=== PATIENT | female | born 1985 | race African-American/Black ===

== ENCOUNTER 2021-11-25 11:32 | Emergency (ER) | payer OTHER ==
--- NOTE | 2021-11-25 12:05 | ED Physician Documentation ---
History of Present Illness - Stated complaint Stated Complaint: SOA/CHEST PX/LT ARM NUMB - Chief complaint Chief Complaint: Cardiac - Additonal information Additional information: 36-year-old female presents emergency department for evaluation of left-sided chest pain and pressure with radiation to the left arm. She is also endorsing some shortness of breath. Symptoms seem to worsen with exertion. She reports a sharp pain when she takes a deep breath. No history of similar in the past. Does not carry history of hypertension or diabetes. No tobacco or nicotine products. She takes no routinely prescribed medications with the exception of occasional Ativan and Protonix. She stopped taking her Sprintec OCP about 3 weeks ago due to nausea. no unilateral leg swelling, recent travel, surgery, immobilization, hx of dvt/cancer Review of Systems Constitutional: reports: Reviewed and negative Eyes: reports: Reviewed and negative Ears: reports: Reviewed and negative Cardiac: reports: Chest pain / pressure, Palpitations Respiratory: denies: Dyspnea, Cough GI: reports: Reviewed and negative : reports: Reviewed and negative Skin: denies: Rash, Lesions Musculoskeletal: reports: Reviewed and negative PD PAST MEDICAL HISTORY - Present Medications Home Medications: Ambulatory Orders Medication Instructions Recorded Confirmed LORazepam [Ativan] 0.5 mg PO BID PRN 11/25/21 11/25/21 Pantoprazole [Protonix] 40 mg PO DAILY 11/25/21 11/25/21 - Allergies Allergies/Adverse Reactions: Allergies Allergy/AdvReac Type Severity Reaction Status Date / Time No Known Drug Allergies Allergy Verified 11/25/21 11:40 PD ED PE NORMAL - General General: Alert and oriented X 3, Well developed/nourished - HEENT HEENT: Atraumatic, Moist mucous membranes - Neck Neck: Supple, no meningeal sign, No adenopathy, No JVD - Cardiac Cardiac: RRR, No murmur - Respiratory Respiratory: No respiratory distress, Clear bilaterally - Abdomen Abdomen: Normal bowel sounds, Soft, Non tender - Rectal Rectal: Deferred - Back Back: No CVA TTP - Derm Derm: Normal color, Warm and dry, No rash - Extremities Extremities: No deformity, No tenderness to palpate - Neuro Neuro: Alert and oriented X 3, 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 Eye Opening: Spontaneous Motor: Obeys Commands Verbal: Oriented GCS Score: 15 - Psych Psych: Normal mood Results - Vitals Vitals: Vital Signs - 24 hr 11/25/21 11:37 Temperature 36.7 C Heart Rate 99 Respiratory 16 Rate Blood Pressure 131/74 H O2 Saturation 99 Oxygen O2 Source Room air - EKG (time done) 1143 Rate: Rate (enter#) (94) Rhythm: NSR [place]: Normal Intervals: Normal VA QRS: Normal Ischemia: Normal ST segments Compare to prior EKG: Old EKG unavailable Computer interpretation: Agree with computer - Labs Labs: Laboratory Tests 11/25/21 11/25/21 11/25/21 12:12 12:12 12:12 WBC 5.2 RBC 4.35 Hgb 13.5 Hct 40.0 MCV 92.0 MCH 31.0 MCHC 33.8 RDW 13.2 Plt Count 258 MPV 10.5 Neut # (Auto) 3.1 Lymph # (Auto) 1.7 [place] # (Auto) 0.4 Eos # (Auto) 0.1 Baso # (Auto) 0.0 Absolute Nucleated RBC 0.00 Nucleated RBC % 0.0 D-Dimer Sodium 139 Potassium 3.6 Chloride 102 Carbon Dioxide 26 Anion Gap 11.0 BUN 8 Creatinine 0.8 Estimated GFR (MDRD) 99 Glucose 112 H Calcium 9.1 Total Bilirubin 1.0 AST 21 ALT 17 Alkaline Phosphatase 55 Troponin I High Sens < 2.3 L Total Protein 7.4 Albumin 4.0 Globulin 3.4 Albumin/Globulin Ratio 1.2 Lipase 18 L 11/25/21 12:12 WBC RBC Hgb Hct MCV MCH MCHC RDW Plt Count MPV Neut # (Auto) Lymph # (Auto) [place] # (Auto) Eos # (Auto) Baso # (Auto) Absolute Nucleated RBC Nucleated RBC % D-Dimer 314.8 H Sodium Potassium Chloride Carbon Dioxide Anion Gap BUN Creatinine Estimated GFR (MDRD) Glucose Calcium Total Bilirubin AST ALT Alkaline Phosphatase Troponin I High Sens Total Protein Albumin Globulin Albumin/Globulin Ratio Lipase - Rads (name of study) CXR Radiology: EMP read contemporaneously (No acute cardiopulmonary process.) CT PA Radiology: Final report received (No acute pulmonary embolus. No acute abnormality identified in the chest.) PD MEDICAL DECISION MAKING - ED course Complexity details: reviewed results, re-evaluated patient, considered differential, d/w patient ED course: This is a well-appearing 36-year-old female that presents the emergency department for evaluation of left-sided chest discomfort with radiation to her arm. She has no history of hypertension or diabetes. No tobacco or nicotine use. She does report that the pain is worse when she takes a deep breath. She was on Sprintec OCP until just about a few weeks ago. No unilateral leg swelling. No cough or fevers. Screening EKG is nonischemic. Initial labs including high-sensitivity troponin were not elevated. Her D-dimer was mildly elevated just over 300. Because we cannot PERC her negative with a history of hormone use the decision was made at that time to pursue CT pulmonary angio to rule out a pulmonary embolus. This exam was completed and is negative. Findings were discussed with the patient. She is stable for discharge home. [place] Did gina make the recommendation for consideration of outpatient echocardiogram or stress test. Emergent return precautions otherwise discussed. Departure - Departure Disposition: 01 Home, Self Care Clinical Impression: Chest pain Qualifiers: Chest pain type: unspecified Qualified Code(s): R07.9 - Chest pain, unspecified Condition: Stable Record reviewed to determine appropriate education?: Yes Instructions: ED Chest Pain [facility] Comments: You were seen today in the emergency department for evaluation of left-sided chest pain with some radiation to your arm as well as shortness of air. Your screening EKG and labs including a troponin were all normal. Your D-dimer was mildly elevated. This is a lab that can be used to assess somebody's risk for developing blood clots. Because it was mildly elevated we did put her to pursue CT imaging of the chest to rule out a blood clot. The CT of your chest was unremarkable and normal in all aspects. The cause of the chest pain today is not clear though I suspect it may be a component of anxiety. Please discuss this ED visit with your primary care provider. There should be consideration of whether you would benefit from referral for outpatient stress test or echocardiogram. However with the with the exception of your ethnicity and family history, you are seemingly low risk for heart disease. If at any point you develop sudden severe chest pain, shortness of breath, have any fainting episodes then you are to return immediately to the ER for second evaluation.
[2021-11-25 12:23] LABS: BASOPHILS % (AUTO) 0.6 %; EOSINOPHILS # (AUTO) 0.1 10^3/uL (0.0-0.7); HGB - HEMOGLOBIN 13.5 g/dL (12.0-16.0); LYMPHOCYTES # (AUTO) 1.7 10^3/uL (1.5-3.5); LYMPHOCYTES % (AUTO) 33.1 %; MEAN CORPUSCULAR HGB CONC 33.8 g/dL (32.0-36.0); MEAN PLATELET VOLUME 10.5 fL (7.9-10.8); MONOCYTES # (AUTO) 0.4 10^3/uL (0.0-1.0); MONOCYTES % (AUTO) 6.7 %; NEUTROPHILS # (AUTO) 3.1 10^3/uL (1.5-6.6); NEUTROPHILS % (AUTO) 58.4 %; PLT - PLATELET COUNT 258 10^3/uL (130-450); RED BLOOD COUNT 4.35 10^6/uL (4.20-5.40); RED CELL DISTRIBUTION WIDTH 13.2 % (12.0-15.0); WHITE BLOOD COUNT 5.2 x10^3/uL (4.8-10.8)
--- NOTE | 2021-11-25 12:31 | XRAY Report ---
PROCEDURE: Chest 1 View X-Ray INDICATIONS: Chest Pain TECHNIQUE: One view of the chest was acquired. COMPARISON: None. FINDINGS: Surgical changes and devices: None. Lungs and pleura: No pleural effusions or pneumothorax. Lungs are clear. Mediastinum: Mediastinal contours appear normal. Heart size is normal. Bones and chest wall: No suspicious bony lesions. Overlying soft tissues appear unremarkable. IMPRESSION: No acute cardiopulmonary abnormality. Reviewed by: Brian Aaron MD on 11/25/2021 12:30 PM [facility] Approved by: Brian Aaron MD on 11/25/2021 12:30 PM [facility] Station ID: [id number]
[2021-11-25 12:37] LABS: ALBUMIN/GLOBULIN RATIO 1.2 (1.0-2.2); CALCIUM 9.1 mg/dL (8.5-10.3); CREATININE 0.8 mg/dL (0.4-1.0); POTASSIUM 3.6 mmol/L (3.5-5.0); TOTAL PROTEIN 7.4 g/dL (6.7-8.2)
[2021-11-25] MEDS ORDERED: IOVERSOL 320 100 ML VIAL IVP ONE ×2 (13:06→13:24)
--- NOTE | 2021-11-25 13:48 | CT Report ---
PROCEDURE: ANGIO CHEST W/WO INDICATIONS: pleuritic chest pain; mildly elevated d-dimer CONTRAST: IV CONTRAST: Optiray 320 ml: 100 PO CONTRAST: *NO PO CONTRAST TECHNIQUE: After the administration of intravenous contrast, 2 mm axial images were acquired from the pulmonary apices to the posterior costophrenic angles during the arterial phase. In addition, 1 mm lung kernel and 5 mm soft tissue kernel reconstructions were performed. 3-dimensional coronal oblique maximum int ensity projection (MIP) reformats, 8 mm axial MIP, and 5 mm coronal and sagittal MPR reformats were t hen performed through the thorax. For radiation dose reduction, the following was used: automated exp osure control, adjustment of mA and/or kV according to patient size. COMPARISON: Chest radiograph from earlier the same day. FINDINGS: Image quality: Excellent. Pulmonary arteries: Pulmonary arteries are normal in size, and demonstrate no intraluminal filling d efects to suggest central pulmonary embolism. Lungs and pleura: Lungs are clear. No pleural effusions or pneumothorax. Central and peripheral ai rways are patent. Mediastinum: Heart size is normal, without pericardial effusion. No mediastinal or hilar adenopathy . Thoracic aorta is normal in caliber and enhancement. Esophagus is normal in caliber, without hiat al hernia. Bones and chest wall: No suspicious bony lesions. Ribs and thoracic spine appear intact throughout. No axillary or supraclavicular adenopathy. The thyroid is normal in size and there are no incident al findings. Abdomen: Visualized upper abdominal solid organs appear normal in the early arterial phase of enhanc ement. A coarse calcification is seen in the posterior right hepatic lobe, which is likely secondary to prior granulomatous disease. IMPRESSION: No acute pulmonary embolus. No acute abnormality identified in the chest. Reviewed by: Brian Aaron MD on 11/25/2021 1:46 PM PST Approved by: Brian Aaron MD on 11/25/2021 1:46 PM PST Station ID: [id number]
[2021-11-25 13:59] VITALS: BP 155/91
== END 2021-11-25 14:10 | disposition home or self-care (01) ==
LOC: ED 11:32
DX: R07.89 Other chest pain (principal)
CPT/HCPCS: 36415; 71045; 71275; 80053; 83690; 84484; 85025; 85379; 93005; 99284; Q9967

== ENCOUNTER 2021-11-27 10:31 | Emergency (ER) | payer OTHER ==
--- NOTE | 2021-11-27 13:23 | ED Physician Documentation ---
History of Present Illness - Stated complaint Stated Complaint: BILATERAL LEG PX - Chief complaint Chief Complaint: General - History obtained from History obtained from: Patient - Additonal information Additional information: Pt comes to the ED with CC of bilateral thigh cramps/burning since starting her period a couple of days ago. Pt states the period is normal, other than cramps being stronger than usual. No distinct injury to her legs. No buttock or low- back pain. No fevers or chills. Review of Systems Ten Systems: 10 systems reviewed and negative Constitutional: reports: Reviewed and negative Eyes: reports: Reviewed and negative Ears: reports: Reviewed and negative Nose: reports: Reviewed and negative Throat: reports: Reviewed and negative Cardiac: reports: Reviewed and negative Respiratory: reports: Reviewed and negative GI: reports: Reviewed and negative : reports: Reviewed and negative Skin: reports: Reviewed and negative Musculoskeletal: reports: Extremity pain. 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 ATTENDANT: section, Dilation and currettage, Tubal ligation - Present Medications Home Medications: Ambulatory Orders Medication Instructions Recorded Confirmed LORazepam [Ativan] 0.5 mg PO BID PRN 11/25/21 11/27/21 Pantoprazole [Protonix] 40 mg PO DAILY 11/25/21 11/27/21 HYDROcod/ACETAM 5/325 [Fowler 5/325] 1 - 2 tablet PO Q6H PRN #14 tablet 11/27/21 - Allergies Allergies/Adverse Reactions: Allergies Allergy/AdvReac Type Severity Reaction Status Date / Time No Known Drug Allergies Allergy Verified 11/27/21 10:45 - Social History Does the pt smoke?: No Smoking Status: Never smoker Does the pt drink ETOH?: Yes Does the pt have substance abuse?: No - Immunizations Immunizations are current?: Yes PD ED PE NORMAL - Vitals Vital signs reviewed: Yes - General General: Alert and oriented X 3, No acute distress, Well developed/nourished - HEENT HEENT: Atraumatic, PERRL, EOMI, Moist mucous membranes - Neck Neck: Supple, no meningeal sign - Cardiac Cardiac: Strong equal pulses - Respiratory Respiratory: No respiratory distress - Back Back: No spinal TTP, Other (No muscular tenderness) - Derm Derm: Normal color, Warm and dry, No rash - Extremities Extremities: No deformity, Normal ROM s pain, No edema, Other (Mild tenderness to palpation) - Neuro Neuro: Alert and oriented X 3, 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 We have discussed home management of the symptoms and the usual indications for return. Departure - Departure Disposition: 01 Home, Self Care Clinical Impression: Leg pain, bilateral Condition: Stable Instructions: ED Muscle Pain Leg Cramps Prescriptions: HYDROcod/ACETAM 5/325 [Fowler 5/325] 1 - 2 tablet PO Q6H PRN #14 tablet PRN Reason: Pain Comments: Your prescription has been electronically transmitted to [facility] in [place]. It is not clear exactly what is causing your pain in your life, that this could be related to menstrual cramps. If pain continues After period is done, then you will need to follow-up with your primary doctor to discuss whether further work-up or intervention is needed. You may take ibuprofen plus the pain meds prescribed, as needed. A Covid test has been sent today. Results should be back in 24 to 48 hours. We will call you back if the result is positive; however, if it is negative, we do not call results back.However, you can watch for your results, even if negative, by going to the hospital website at [email or web address], clicking on the "my [employer] tab", and signing up for the patient portal. Discharge Date/Time: 11/27/21 13:36
[2021-11-27 13:34] VITALS: BP 142/82
== END 2021-11-27 13:36 | disposition home or self-care (01) ==
LOC: ED 10:31
DX: M79.605 Pain in left leg (principal); M79.604 Pain in right leg; Z20.822 Contact with and (suspected) exposure to COVID-19
CPT/HCPCS: 99282; 99283

== ENCOUNTER 2022-09-04 21:07 | Emergency (ER) | payer OTHER ==
[2022-09-04 21:21] VITALS: BP 135/92
[2022-09-04] MEDS ORDERED: predniSONE 20 MG TABLET PO STA (22:09)
--- NOTE | 2022-09-04 22:11 | ED Physician Documentation ---
PD HPI HEENT - Stated complaint Stated Complaint: THROAT SWOLLEN, NASAL DRIP,COUGH - Chief complaint Chief Complaint: Heent - History obtained from History obtained from: Patient - Additional information Additional information: Previously healthy 36-year-old woman with no possibility of has been sick for about 2 to 3 days with sore throat, runny nose, cough. No fevers. Thing that bothers her the most that she feels like her throat is swollen. Review of Systems Constitutional: reports: Reviewed and negative Eyes: reports: Reviewed and negative Nose: reports: Rhinorrhea / runny nose Throat: reports: Sore throat Respiratory: reports: Cough. 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: None : None HEENT: Chronic vision loss Psych: None, Anxiety, Panic attacks, Claustrophobia Musculoskeletal: None Derm: None - Past Surgical History Past Surgical History: Yes General: EGD, Other /ANALYTICS ARCHITECT: section, Dilation and currettage, Tubal ligation - Present Medications Home Medications: Ambulatory Orders Medication Instructions Recorded Confirmed LORazepam [Ativan] 0.5 mg PO BID PRN 11/25/21 03/21/22 Cetirizine [ZyrTEC] 10 mg PO DAILY 01/23/22 03/21/22 Montelukast [Singulair] 10 mg PO QPM 01/23/22 03/21/22 Famotidine [Pepcid AC] 10 mg PO DAILY 03/14/22 03/21/22 Fluticasone [Flonase] 1 sprays DIANNE BID #16 gm 09/04/22 Ondansetron HCl 4 mg ORAL QID PRN 09/04/22 09/04/22 predniSONE [Deltasone] 60 mg PO DAILY 5 Days #15 tablet 09/04/22 - Allergies Allergies/Adverse Reactions: Allergies Allergy/AdvReac Type Severity Reaction Status Date / Time sulfamethoxazole Allergy Hives Verified 09/04/22 21:17 [From Bactrim] trimethoprim [From Bactrim] Allergy Hives Verified 09/04/22 21:17 - Social History Does the pt smoke?: No Smoking Status: Never smoker Does the pt drink ETOH?: Yes Does the pt have substance abuse?: No - Immunizations Immunizations are current?: Yes PD ED PE NORMAL - Vitals Vital signs reviewed: Yes - General General: Alert and oriented X 3, No acute distress - HEENT HEENT: Other (Redness of the tonsillar pillars and soft palate without tonsillar exudates, normal phonation. Normal TMs.) - Neck Neck: Supple, no meningeal sign, No bony TTP - Cardiac Cardiac: RRR, No murmur - Respiratory Respiratory: No respiratory distress, Clear bilaterally - Abdomen Abdomen: Non tender - Derm Derm: Normal color, Warm and dry - Neuro Neuro: Alert and oriented X 3, Normal speech - Psych Psych: Normal mood, Normal affect Results - Vitals Vitals: Vital Signs - 24 hr 09/04/22 21:16 Temperature 37.1 C Heart Rate 106 H Respiratory 16 Rate Blood Pressure 135/92 H O2 Saturation 100 Oxygen O2 Source Room air PD MEDICAL DECISION MAKING - ED course ED course: 36-year-old woman with viral pharyngitis that is distressing to her, will treat with oral steroids and other conservative measures. Departure - Departure Disposition: 01 Home, Self Care Clinical Impression: Viral pharyngitis, Viral URI Condition: Good Record reviewed to determine appropriate education?: Yes Instructions: ED Viral Syndrome Prescriptions: predniSONE [Deltasone] 60 mg PO DAILY 5 Days #15 tablet Fluticasone [Flonase] 1 sprays DIANNE BID #16 gm Comments: Call your doctor to arrange a follow-up appointment, make the next available appointment. In the interim, return anytime if worse or if new symptoms develop.
== END 2022-09-04 22:20 | disposition home or self-care (01) ==
LOC: ED 21:07
DX: J02.8 Acute pharyngitis due to other specified organisms (principal)
CPT/HCPCS: 99282; J7512

== ENCOUNTER 2023-02-18 11:03 | Emergency (ER) | payer OTHER ==
--- NOTE | 2023-02-18 11:25 | ED Physician Documentation ---
PD HPI CHEST PAIN - Stated complaint Stated Complaint: CHEST PX,NAUSEA - Chief complaint Chief Complaint: Cardiac - History obtained from History obtained from: Patient - Additional information Additional information: Otherwise healthy 37-year-old woman has had right-sided substernal chest pain radiating to the left since 9 PM at night. It started at rest. It does not get worse if she exerts herself. She is not short of breath with it, but she is nauseous with it. She "feels like she has to burp" and feels like that would make her better if she could. She denies pedal edema or calf pain. No recent travel. No history of heart problems. No family history of heart problems. No personal history of thromboembolic disease. 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 : None HEENT: Chronic vision loss Psych: None, Anxiety, Panic attacks, Claustrophobia Musculoskeletal: None Derm: None - Past Surgical History Past Surgical History: Yes General: EGD, Other /FIRER TUNNEL KILN: section, Dilation and currettage, Tubal ligation - Present Medications Home Medications: Ambulatory Orders Medication Instructions Recorded Confirmed LORazepam [Ativan] 0.5 mg PO BID PRN 11/25/21 02/18/23 Cetirizine [ZyrTEC] 10 mg PO DAILY 01/23/22 02/18/23 Montelukast [Singulair] 10 mg PO QPM 01/23/22 02/18/23 Famotidine [Pepcid AC] 10 mg PO DAILY 03/14/22 02/18/23 Fluticasone [Flonase] 1 sprays DIANNE BID #16 gm 09/04/22 02/18/23 Ondansetron HCl 4 mg ORAL QID PRN 09/04/22 02/18/23 Omeprazole 40 mg PO DAILY #30 cap 02/18/23 Ondansetron Odt [Zofran] 4 mg TL Q6H PRN #10 tablet 02/18/23 - Allergies Allergies/Adverse Reactions: Allergies Allergy/AdvReac Type Severity Reaction Status Date / Time sulfamethoxazole Allergy Hives Verified 02/18/23 11:11 [From Bactrim] trimethoprim [From Bactrim] Allergy Hives Verified 02/18/23 11:11 - Social History Does the pt smoke?: No Smoking Status: Never smoker Does the pt drink ETOH?: Yes Does the pt have substance abuse?: No - Immunizations Immunizations are current?: Yes PD ED PE NORMAL - Vitals Vital signs reviewed: Yes (Mild resting tachycardia) - General General: Alert and oriented X 3, No acute distress - Cardiac Cardiac: RRR, No murmur - Respiratory Respiratory: No respiratory distress, Clear bilaterally - Abdomen Abdomen: Non tender - Extremities Extremities: No edema, No calf tenderness / cord - Neuro Neuro: Alert and oriented X 3, Normal speech Results - Vitals Vitals: Vital Signs - 24 hr 02/18/23 02/18/23 02/18/23 11:08 11:39 12:15 Temperature 36.8 C Heart Rate 105 H 101 H 101 H Respiratory 16 24 18 Rate Blood Pressure 125/81 H 117/78 124/77 O2 Saturation 100 100 100 02/18/23 02/18/23 02/18/23 13:36 14:03 14:33 Temperature Heart Rate 96 88 93 Respiratory 16 20 22 Rate Blood Pressure 118/77 114/77 110/71 O2 Saturation 99 99 100 Oxygen O2 Source Room air - EKG (time done) 1117 EKG releavant findings:: EKG personally interpreted by author of this note. Relevant findings are: Rate: Rate (enter#) (103) Rhythm: Sinus tachycardia [place]: Normal Intervals: Normal IA QRS: Normal Ischemia: Normal ST segments - Labs Labs: Laboratory Tests 02/18/23 02/18/23 02/18/23 11:30 11:30 11:30 WBC 5.2 RBC 4.51 Hgb 13.7 Hct 41.3 MCV 91.6 MCH 30.4 MCHC 33.2 RDW 13.3 Plt Count 252 MPV 10.0 Neut # (Auto) 4.3 Lymph # (Auto) 0.6 L [place] # (Auto) 0.3 Eos # (Auto) 0.0 Baso # (Auto) 0.0 Absolute Nucleated RBC 0.00 Nucleated RBC % 0.0 D-Dimer Sodium 136 Potassium 3.5 Chloride 103 Carbon Dioxide 28 Anion Gap 5.0 L BUN 9 Creatinine 0.8 Estimated GFR (MDRD) 98 Glucose 104 H Calcium 8.6 Total Bilirubin 0.7 AST 19 ALT 18 Alkaline Phosphatase 52 Troponin I High Sens < 2.3 L Total Protein 7.1 Albumin 3.8 Globulin 3.3 Albumin/Globulin Ratio 1.2 Lipase 22 02/18/23 11:44 WBC RBC Hgb Hct MCV MCH MCHC RDW Plt Count MPV Neut # (Auto) Lymph # (Auto) [place] # (Auto) Eos # (Auto) Baso # (Auto) Absolute Nucleated RBC Nucleated RBC % D-Dimer 488.1 H Sodium Potassium Chloride Carbon Dioxide Anion Gap BUN Creatinine Estimated GFR (MDRD) Glucose Calcium Total Bilirubin AST ALT Alkaline Phosphatase Troponin I High Sens Total Protein Albumin Globulin Albumin/Globulin Ratio Lipase - Rads (name of study) CT angiography of the chest was negative except for hiatal hernia. Relevant Findings:: Final report received, EMP independent interpretation of test PD Medical Decision Making - ED course Complexity details: reviewed results (CBC and CMP unremarkable. Troponin negative.) ED course: 37-year-old woman presents with chest pain, feeling like she needs to burp. She got mild relief from a GI cocktail and this was followed with shot of Toradol IV that was more effective for her. Work-up here demonstrates normal cardiac enzymes with nonischemic EKG. Her D-dimer was elevated and this was followed by a CT angiogram of the chest which showed no evidence of PE but did show a hiatal hernia which may be the cause of her pain. She was counseled on this and we will start her on omeprazole and she needed something for nausea. Departure - Departure Disposition: 01 Home, Self Care Clinical Impression: Chest pain, Hiatal hernia Condition: Good Record reviewed to determine appropriate education?: Yes Instructions: Hiatal Hernia, ED Chest Pain NonCardiac Prescriptions: Omeprazole 40 mg PO DAILY #30 cap Ondansetron Odt [Zofran] 4 mg TL Q6H PRN #10 tablet PRN Reason: Nausea / Vomiting Comments: I sent your prescriptions electronically to [facility] in [place]. As discussed the only findings of significant today was negative cardiac enzymes, and a CT to rule out blood clots which did rule out blood clots but found that you have hiatal hernia which is probably what is bothering you. Return if worse. [place].
[2023-02-18 11:37] LABS: BASOPHILS % (AUTO) 0.2 %; EOSINOPHILS % (AUTO) 0.2 %; HCT - HEMATOCRIT 41.3 % (37.0-47.0); HGB - HEMOGLOBIN 13.7 g/dL (12.0-16.0); LYMPHOCYTES # (AUTO) 0.6 10^3/uL (1.5-3.5); LYMPHOCYTES % (AUTO) 10.7 %; MEAN CORPUSCULAR HEMOGLOBIN 30.4 pg (27.0-31.0); MEAN CORPUSCULAR HGB CONC 33.2 g/dL (32.0-36.0); MEAN CORPUSCULAR VOLUME 91.6 fL (81.0-99.0); MONOCYTES # (AUTO) 0.3 10^3/uL (0.0-1.0); MONOCYTES % (AUTO) 6.3 %; NEUTROPHILS # (AUTO) 4.3 10^3/uL (1.5-6.6); NEUTROPHILS % (AUTO) 82.2 %; PLT - PLATELET COUNT 252 10^3/uL (130-450); RED BLOOD COUNT 4.51 10^6/uL (4.20-5.40); RED CELL DISTRIBUTION WIDTH 13.3 % (12.0-15.0); WHITE BLOOD COUNT 5.2 x10^3/uL (4.8-10.8)
[2023-02-18 11:51] LABS: ALBUMIN 3.8 g/dL (3.2-5.5); ALBUMIN/GLOBULIN RATIO 1.2 (1.0-2.2); BILIRUBIN,TOTAL 0.7 mg/dL (0.2-1.0); CALCIUM 8.6 mg/dL (8.5-10.3); CREATININE 0.8 mg/dL (0.4-1.0); POTASSIUM 3.5 mmol/L (3.5-5.0); TOTAL PROTEIN 7.1 g/dL (6.7-8.2)
[2023-02-18] MEDS: LIDOCAINE VISCOUS 2% 15 ML UDC MM STA (12:11)
[2023-02-18] MEDS: MAG HYDROX/AL HYDROX/SIMETH 30 ML UDC PO STA (12:11)
[2023-02-18] MEDS ORDERED: iohexoL-300 100 ML VIAL ONE (12:23)
--- NOTE | 2023-02-18 12:23 | XRAY Report ---
PROCEDURE: Chest 1 View X-Ray INDICATIONS: Chest Pain TECHNIQUE: One view of the chest was acquired. COMPARISON: Chest x-ray, 11/25/2021. FINDINGS: Surgical changes and devices: None. Lungs and pleura: No pleural effusions or pneumothorax. Lungs are clear. Mediastinum: Mediastinal contours appear normal. Heart size is normal. Bones and chest wall: No suspicious bony lesions. Overlying soft tissues appear unremarkable. IMPRESSION: No acute cardiopulmonary disease. Reviewed by: Aguilar Redmond MD on 02/18/2023 12:21 PM PDT Approved by: Aguilar Redmond MD on 02/18/2023 12:21 PM PDT Station ID: [id number]
[2023-02-18] MEDS: KETOROLAC 15 MG/ML VIAL IVP STA (12:35)
[2023-02-18] MEDS: iohexoL-300 100 ML VIAL IVP ONE (12:58)
--- NOTE | 2023-02-18 14:23 | CT Report ---
PROCEDURE: ANGIO CHEST INDICATIONS: CHest pain, high dimer CONTRAST: 80ml Omnipaque 300 TECHNIQUE: After the administration of intravenous contrast, 2 mm axial images were acquired from the pulmonary apices to the posterior costophrenic angles during the arterial phase. In addition, 1 mm lung kernel and 5 mm soft tissue kernel reconstructions were performed. 3-dimensional coronal oblique maximum int ensity projection (MIP) reformats, 8 mm axial MIP, and 5 mm coronal and sagittal MPR reformats were t hen performed through the thorax. For radiation dose reduction, the following was used: automated exp osure control, adjustment of mA and/or kV according to patient size. COMPARISON: CT angiogram chest, 11/25/2021 FINDINGS: Image quality: Excellent. Large vessels: No filling defects within the opacified pulmonary arteries, accounting for motion and contrast timing. No evidence of acute aortic syndrome or aortic aneurysm. Lungs and pleura: No consolidation. No pleural effusions. No pneumothorax. No suspicious pulmonary n odules which require follow up. Mediastinum: Heart size is normal. No pericardial effusions. No mediastinal adenopathy by size criter ia. Small hiatal hernia. Chest wall and lower neck: Thyroid is unremarkable. No axillary or supraclavicular adenopathy by size . Bones: No aggressive osseous abnormality. Upper Abdomen: There is a calcified granuloma in liver.. IMPRESSION: 1. No findings to suggest pulmonary aneurysm. 2. No active cardiopulmonary disease identified. 3. Small hiatal hernia. Reviewed by: Aguilar Redmond MD on 02/18/2023 2:22 PM PDT Approved by: Aguilar Redmond MD on 02/18/2023 2:22 PM PDT Station ID: [id number]
[2023-02-18 14:34] VITALS: BP 110/71
== END 2023-02-18 15:03 | disposition home or self-care (01) ==
LOC: ED 11:03
DX: R07.9 Chest pain, unspecified (principal); K44.9 Diaphragmatic hernia without obstruction or gangrene
CPT/HCPCS: 36415; 71045; 71275; 80053; 83690; 84484; 85025; 85379; 93005; 96374; 99284; A9270; Q9967

== ENCOUNTER 2024-06-14 10:01 | Emergency (ER) | payer OTHER ==
[2024-06-14 10:13] VITALS: O2SAT 100
--- NOTE | 2024-06-14 11:01 | ED Physician Documentation ---
History of Present Illness - Stated complaint Stated Complaint: PIERCING HEALING ISSUES - Chief complaint Chief Complaint: Wound - History obtained from History obtained from: Patient - History of Present Illness Timing: How many days ago (several) Pain level max: 0 Pain level now: 0 - Additonal information Additional information: Patient is a 38-year-old female who states that she took the piercing out of her right nipple a few weeks ago, noticed increased redness and swelling today. Concerned about infection. No fevers. No chills. No drainage. Nothing makes it better or worse. She is currently on Augmentin for a "sinus infection". She denies any possibility of . Review of Systems Constitutional: denies: Fever, Chills PD PAST MEDICAL HISTORY - Past Medical History Past Medical History: Yes Cardiovascular: None Respiratory: Other Neuro: None Endocrine/Autoimmune: None GI: GERD [employer]: None : None HEENT: Chronic vision loss Psych: None, Anxiety, Panic attacks, Claustrophobia Musculoskeletal: None Derm: None - Past Surgical History Past Surgical History: Yes General: EGD, Other /[employer]: section, Dilation and currettage, Tubal ligation - Present Medications Home Medications: Ambulatory Orders Medication Instructions Recorded Confirmed Amox/Clav 875/125 [Augmentin 1 tablet PO Q12H 06/14/24 06/14/24 875/125 Tab] Doxycycline [Vibramycin] 100 mg PO BID #20 tablet 06/14/24 Famotidine [Pepcid AC] 10 mg PO DAILY 06/14/24 06/14/24 - Allergies Allergies/Adverse Reactions: Allergies Allergy/AdvReac Type Severity Reaction Status Date / Time sulfamethoxazole Allergy Hives Verified 06/14/24 10:09 [From Bactrim] trimethoprim [From Bactrim] Allergy Hives Verified 06/14/24 10:09 - Social History Does the pt smoke?: No Smoking Status: Never smoker Does the pt drink ETOH?: Yes Does the pt have substance abuse?: No - Immunizations Immunizations are current?: Yes PD ED PE NORMAL - Vitals Vital signs reviewed: Yes - General General: Alert and oriented X 3, No acute distress - HEENT HEENT: Moist mucous membranes - Neck Neck: Supple, no meningeal sign - Cardiac Cardiac: RRR, Strong equal pulses - Respiratory Respiratory: No respiratory distress, Clear bilaterally - Derm Derm: Warm and dry - Extremities Extremities: Other (There is mild erythema to the right nipple. There is no discharge able to be expressed. There is no palpable mass in the breast. No evidence of abscess. No lymphadenopathy.) - Neuro Neuro: Alert and oriented X 3 - Psych Psych: Normal mood, Normal affect Results - Vitals Vitals: Vital Signs - 24 hr 06/14/24 06/14/24 10:06 11:08 Temperature 36.6 C Heart Rate 97 80 Respiratory 20 20 Rate Blood Pressure 148/93 H 140/68 H O2 Saturation 100 100 Oxygen O2 Source Room air PD Medical Decision Making - ED course Complexity details: considered differential, d/w patient ED course: Patient with what appears to be a mild cellulitis of the right breast. Will place on doxycycline in addition to her Augmentin. No evidence of abscess on examination. No fevers. No chills. No evidence of sepsis. No indication for further workup at this time. No drainage to culture. Will also use warm compresses to the breast at home. Patient counseled regarding signs and symptoms for which I believe and urgent re-evaluation would be necessary. Patient with good understanding of and agreement to plan and is comfortable going home at this time This document was made in part using voice recognition software. While efforts are made to proofread this document, sound alike and grammatical errors may occur. Departure - Departure Disposition: 01 Home, Self Care Clinical Impression: Cellulitis Qualifiers: Site of cellulitis: unspecified site Qualified Code(s): L03.90 - Cellulitis, unspecified Condition: Good Instructions: ED Infec Skin Cellulitis Follow-Up: DIONNA ARMSTRONG NP [Primary Care Provider] - Prescriptions: Doxycycline [Vibramycin] 100 mg PO BID #20 tablet Comments: [facility] [place]. Please take the antibiotics as prescribed. You can continue your Augmentin as well. Forms: PCP List Discharge Date/Time: 06/14/24 11:09
[2024-06-14 11:29] VITALS: BP 140/68
== END 2024-06-14 11:09 | disposition home or self-care (01) ==
LOC: ED 10:01
DX: N61.0 Mastitis without abscess (principal)
CPT/HCPCS: 99282; 99283